=== PATIENT | female | born 1975 | race Native Hawaiian/Other Pacific Islander ===

== ENCOUNTER 2018-10-13 17:32 | Emergency (ER) | payer OTHER ==
[~2018-10-13] VITALS: Ht 172.7 cm; Wt 61.2 kg
[2018-10-13 18:33] LABS: PLATELET COUNT 180 K/uL (152-353)
[2018-10-13 18:49] LABS: POTASSIUM 3.4 mmol/L (3.6-5.2)
[2018-10-13 20:08] VITALS: BP 147/98; TEMP 98
== END 2018-10-13 20:10 | disposition home or self-care (01) ==
LOC: ED 17:32
PROVIDERS: Family Medicine
DX: K52.9 Noninfective gastroenteritis and colitis, unspecified (principal); I10 Essential (primary) hypertension; E87.6 Hypokalemia; E86.0 Dehydration
CPT/HCPCS: 36415; 80053; 85027; 96360; 96375; 99284; J0360; J1885; J2405; J2550; J3490

== ENCOUNTER 2019-07-28 06:40 | Emergency (ER) | payer BC ==
[~2019-07-28] VITALS: Ht 172.7 cm; Wt 68.0 kg
[2019-07-28 06:47] VITALS: TEMP 97.3
[2019-07-28 08:13] VITALS: BP 132/90
== END 2019-07-28 08:13 | disposition home or self-care (01) ==
LOC: ED 06:40
DX: I10 Essential (primary) hypertension (principal); R04.0 Epistaxis
CPT/HCPCS: 99282

== ENCOUNTER 2019-11-05 16:19 | Emergency (ER) | payer BC ==
[~2019-11-05] VITALS: Ht 170.2 cm; Wt 68.0 kg
[2019-11-05 16:29] VITALS: BP 152/92; TEMP 98.7
[2019-11-05 17:29] LABS: PLATELET COUNT 171 K/uL (152-353)
[2019-11-05 17:41] LABS: POTASSIUM 3.7 mmol/L (3.6-5.2)
== END 2019-11-05 18:05 | disposition home or self-care (01) ==
LOC: ED 16:19
PROVIDERS: Family Medicine
DX: T63.301A Toxic effect of unspecified spider venom, accidental (unintentional), initial encounter (principal); L02.416 Cutaneous abscess of left lower limb; Y92.89 Other specified places as the place of occurrence of the external cause
CPT/HCPCS: 80053; 85027; 87070; 87077; 87185; 87186; 87205; 96372; 99283; J1885

== ENCOUNTER 2020-08-11 14:44 | Emergency (ER) | payer BC ==
[~2020-08-11] VITALS: Ht 177.8 cm; Wt 65.8 kg
[2020-08-11 14:48] VITALS: BP 164/102; TEMP 97.8
== END 2020-08-11 15:42 | disposition home or self-care (01) ==
LOC: ED 14:44
DX: H00.033 Abscess of eyelid right eye, unspecified eyelid (principal); H01.8 Other specified inflammations of eyelid; R23.8 Other skin changes
CPT/HCPCS: 96372; 99283; J1885